=== PATIENT | female | born 1950 | race Caucasian/White ===

== ENCOUNTER 2018-04-07 15:38 | Emergency (ER) | payer MEDICARE, OTHER ==
[~2018-04-07 15:38] MED LIST: ASPI-555 PO; CYAN100092 PO; LACT1CAP78 PO; OMEP20CA10 PO; PARO-37 PO; SIMV10TA6 PO
== END 2018-04-07 16:31 | disposition home or self-care (01) ==
LOC: EDH 15:38
DX: S52.591A Other fractures of lower end of right radius, initial encounter for closed fracture (principal); I10 Essential (primary) hypertension; E78.5 Hyperlipidemia, unspecified; Z72.0 Tobacco use; W18.39XA Other fall on same level, initial encounter; Y93.89 Activity, other specified; Y92.89 Other specified places as the place of occurrence of the external cause; Y99.8 Other external cause status
CPT/HCPCS: 29125; 73110